=== PATIENT | female | born 1940 | race Caucasian/White ===

== ENCOUNTER 2020-12-14 12:01 | Emergency (ER) | payer OTHER, MEDICARE ==
[2020-12-14] MEDS ORDERED: traMADol 50 MG Tab PO ONE (12:02)
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
[2020-12-14] MEDS ORDERED: Iopamidol 755 Mg/ML 100 ML Bottle IV ONE (14:09)
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
== END 2020-12-14 17:50 | disposition home or self-care (01) ==
LOC: FB.ED 12:01
DX: S93.401A Sprain of unspecified ligament of right ankle, initial encounter (principal); S16.1XXA Strain of muscle, fascia and tendon at neck level, initial encounter; S20.219A Contusion of unspecified front wall of thorax, initial encounter; S39.91XA Unspecified injury of abdomen, initial encounter; R55 Syncope and collapse; N18.9 Chronic kidney disease, unspecified; I48.91 Unspecified atrial fibrillation; Z79.01 Long term (current) use of anticoagulants; Z88.0 Allergy status to penicillin; Z79.899 Other long term (current) drug therapy; V89.2XXA Person injured in unspecified motor-vehicle accident, traffic, initial encounter; Y92.411 Interstate highway as the place of occurrence of the external cause
CPT/HCPCS: 36415; 70450; 71260; 72125; 73610-RT; 74177; 80053; 81001; 84484; 85025; 85610; 93005; 99285-25; A9270-GY; Q9967